=== PATIENT | female | born 1955 | race African-American/Black ===

== ENCOUNTER 2016-06-21 18:56 | Emergency (ER) | payer MEDICAID, OTHER ==
[~2016-06-21] VITALS: Ht 160 cm; Wt 108.0 kg
[2016-06-21] MEDS ORDERED: KETOROLAC 60MG/2ML VIAL IM ONE (22:30)
[2016-06-21 23:01] LABS: EOSINOPHILS % 2.1 % (0.0-5.0); HEMATOCRIT. 37.4 % (36.0-48.0); HEMOGLOBIN. 12.1 g/dL (12.0-16.0); LYMPHOCYTES % 30.9 % (20.0-50.0); MEAN CORPUSCULAR HEMOGLOBIN 22.6 pg (28.0-32.0); MEAN CORPUSCULAR HGB CONC 32.4 g/dL (31.0-37.0); MEAN CORPUSCULAR VOLUME 69.9 fL (81.0-99.0); MEAN PLATELET VOLUME 9.4 fl (7.4-10.4); MONOCYTES % 10.1 % (2.0-8.0); NEUTROPHILS % 55.9 % (40.0-76.0); PLATELET 220 x1000/uL (130-400); RED BLOOD CELL COUNT 5.36 mill/uL (4.2-5.4); RED CELL DISTRIBUTION WIDTH 17.6 % (11.6-14.6); WHITE BLOOD COUNT 9.8 x1000/uL (4.5-11.0)
[2016-06-21 23:02] LABS: ADD RBC MORPHOLOGY YES; DIFFERENTIAL COMMENT 1
[2016-06-21 23:03] LABS: CHLORIDE 106 mEq/L (98-107); INDEX HEMOLYSI 1 (1-3); INDEX ICTERIC 1 (1-4); INDEX LIPEMIC 1 (1-3)
[2016-06-21 23:11] LABS: ALANINE AMINOTRANSFERASE 19 IU/L (13-61); ALBUMIN 2.9 g/dL (3.4-5.0); ANION GAP 10; CALCIUM 8.5 mg/dL (8.5-10.1); CARBON DIOXIDE 28 mEq/L (21-32); UREA NITROGEN BLOOD 15 mg/dL (7-21); eGFR > 60 mL/min (>60)
[2016-06-21 23:15] LABS: HYPOCHROMASIA 1+; PLATELET ESTIMATE NORMAL
[2016-06-21 23:35] VITALS: BP 100/86
== END 2016-06-22 00:10 | disposition home or self-care (01) ==
LOC: ER 19:08
DX: M94.0 Chondrocostal junction syndrome [Tietze] (principal); J44.9 Chronic obstructive pulmonary disease, unspecified; F17.210 Nicotine dependence, cigarettes, uncomplicated; F32.9 Major depressive disorder, single episode, unspecified; I10 Essential (primary) hypertension; Z88.6 Allergy status to analgesic agent
CPT/HCPCS: 36415; 80053; 85025; 96372; 99284; J1885

== ENCOUNTER 2019-05-25 11:35 | Emergency (ER) | payer MEDICAID, OTHER ==
[~2019-05-25] VITALS: Ht 162.6 cm; Wt 90.0 kg
[2019-05-25 20:06] VITALS: BP 135/79
[2019-05-26] MEDS ORDERED: IBUPROFEN 600MG TABLET PO ONE (09:45)
== END 2019-05-26 10:31 | disposition home or self-care (01) ==
LOC: ER 11:49
DX: J06.9 Acute upper respiratory infection, unspecified (principal); Z59.0 Homelessness; E11.9 Type 2 diabetes mellitus without complications; I10 Essential (primary) hypertension; F20.9 Schizophrenia, unspecified; Z88.5 Allergy status to narcotic agent
CPT/HCPCS: 71045; 99283

== ENCOUNTER 2021-10-26 14:38 | Emergency (ER) | payer MEDICAID, OTHER ==
[~2021-10-26] VITALS: Ht 165.1 cm; Wt 73.0 kg
[2021-10-26 14:42] VITALS: BP 138/77
[2021-10-26] MEDS ORDERED: IBUPROFEN 600MG TABLET PO STA (17:06)
[2021-10-26 17:53] LABS: BASOPHILS % 0.8 % (0.0-2.0); EOSINOPHILS % 2.8 % (0.0-5.0); HEMATOCRIT. 38.2 % (36.0-48.0); LYMPHOCYTES % 44.3 % (20.0-50.0); MEAN CORPUSCULAR HEMOGLOBIN 22.3 pg (28.0-32.0); MEAN CORPUSCULAR VOLUME 70.6 fL (81.0-99.0); MEAN PLATELET VOLUME 9.3 fl (7.4-10.4); MONOCYTES % 10.1 % (2.0-8.0); PLATELET 234 x1000/uL (130-400)
[2021-10-26 17:57] LABS: CHLORIDE 111 mEq/L (98-107)
[2021-10-26 17:58] LABS: PROTHROMBIN TIME 10.7 sec (9.6-11.0)
== END 2021-10-26 20:12 | disposition left against medical advice (07) ==
LOC: ER 14:38
DX: R07.89 Other chest pain (principal); I10 Essential (primary) hypertension; E11.9 Type 2 diabetes mellitus without complications; Z20.822 Contact with and (suspected) exposure to COVID-19; Z88.5 Allergy status to narcotic agent; Z86.59 Personal history of other mental and behavioral disorders; Z53.29 Procedure and treatment not carried out because of patient's decision for other reasons
CPT/HCPCS: 36415; 71045; 80053; 83880; 84484; 85025; 85610; 87426; 93005; 93970; 99285; C9803

== ENCOUNTER 2022-01-25 09:49 | Emergency (ER) | payer MEDICAID ==
[~2022-01-25] VITALS: Ht 170.2 cm; Wt 77.0 kg
[2022-01-25 11:44] LABS: BASOPHILS % 0.5 % (0.0-2.0); EOSINOPHILS % 1.4 % (0.0-5.0); HEMATOCRIT. 35.4 % (36.0-48.0); HEMOGLOBIN. 11.2 g/dL (12.0-16.0); LYMPHOCYTES % 36.3 % (20.0-50.0); MEAN CORPUSCULAR HEMOGLOBIN 22.1 pg (28.0-32.0); MEAN PLATELET VOLUME 9.3 fl (7.4-10.4); MONOCYTES % 9.2 % (2.0-8.0); NEUTROPHILS % 52.6 % (40.0-76.0); PLATELET 230 x1000/uL (130-400); RED BLOOD CELL COUNT 5.06 mill/uL (4.2-5.4); RED CELL DISTRIBUTION WIDTH 16.7 % (11.6-14.6)
[2022-01-25 11:55] LABS: PROTHROMBIN TIME 10.8 sec (9.6-11.0)
[2022-01-25 12:12] LABS: CHLORIDE 107 mEq/L (98-107)
[2022-01-25 12:19] LABS: ETHANOL BLOOD < 10 mg/dL
[2022-01-25 12:29] LABS: CLARITY URINE CLEAR (CLEAR); COLOR URINE YELLOW (YELLOW); KETONES URINE NEGATIVE (NEGATIVE); LEUKOCYTE ESTERASE URINE 2+ (NEGATIVE); NITRITE URINE NEGATIVE (NEGATIVE); OCCULT BLOOD URINE NEGATIVE (NEGATIVE); PH URINE 6.5 (4.5-8.0); PROTEIN URINE NEGATIVE (NEGATIVE); SPECIFIC GRAVITY URINE 1.018 (1.005-1.030)
[2022-01-25 12:47] LABS: *AMPHETAMINES SCREEN URINE NEGATIVE (NEGATIVE); *BARBITURATES SCREEN URINE NEGATIVE (NEGATIVE); *BENZODIAZEPINES SCREEN URINE NEGATIVE (NEGATIVE); *COCAINE SCREEN URINE NEGATIVE (NEGATIVE); CANNABINOID URINE SCREEN PRESUMTIVE POSITIVE (NEGATIVE); METHADONE URINE SCREEN NEGATIVE (NEGATIVE); OPIATES URINE SCREEN NEGATIVE (NEGATIVE); PHENCYCLIDINE URINE SCREEN NEGATIVE (NEGATIVE)
[2022-01-25] MEDS ORDERED: CIPR-264 MT (13:34)
[2022-01-25] MEDS ORDERED: IOHEXOL-300 100 ML BOTTLE ONE (13:35)
[2022-01-25 14:37] VITALS: BP 172/94
[2022-01-25 14:37] LABS: PLATELET ESTIMATE NORMAL
== END 2022-01-25 15:11 | disposition home or self-care (01) ==
LOC: ER 09:49
DX: N39.0 Urinary tract infection, site not specified (principal); I10 Essential (primary) hypertension; E11.9 Type 2 diabetes mellitus without complications; Z88.5 Allergy status to narcotic agent; Z98.890 Other specified postprocedural states; Z86.59 Personal history of other mental and behavioral disorders
CPT/HCPCS: 36415; 71045; 74177; 80053; 80305; 80320; 81003; 83690; 85025; 85610; 93005; 99285; Q9967; G0480

== ENCOUNTER 2022-01-27 00:46 | Emergency (ER) | payer MEDICAID ==
[~2022-01-27] VITALS: Ht 154.9 cm; Wt 80.0 kg
[~2022-01-27 00:46] MED LIST: CIPR-264 MT
[2022-01-27 04:34] VITALS: BP 162/78
[2022-01-27 07:12] LABS: BASOPHILS % 0.4 % (0.0-2.0); EOSINOPHILS % 2.7 % (0.0-5.0); HEMATOCRIT. 37.4 % (36.0-48.0); HEMOGLOBIN. 11.8 g/dL (12.0-16.0); LYMPHOCYTES % 35.6 % (20.0-50.0); MEAN CORPUSCULAR HEMOGLOBIN 21.9 pg (28.0-32.0); MEAN CORPUSCULAR VOLUME 69.2 fL (81.0-99.0); MEAN PLATELET VOLUME 9.5 fl (7.4-10.4); MONOCYTES % 9.7 % (2.0-8.0); NEUTROPHILS % 51.6 % (40.0-76.0); PLATELET 278 x1000/uL (130-400); RED CELL DISTRIBUTION WIDTH 16.4 % (11.6-14.6)
[2022-01-27 07:17] LABS: CHLORIDE 108 mEq/L (98-107)
[2022-01-27 07:22] LABS: PROTHROMBIN TIME 10.7 sec (9.6-11.0)
[2022-01-27 07:35] LABS: PLATELET ESTIMATE NORMAL
== END 2022-01-27 08:49 | disposition left against medical advice (07) ==
LOC: ER 00:46
DX: R10.9 Unspecified abdominal pain (principal); M19.90 Unspecified osteoarthritis, unspecified site; E11.9 Type 2 diabetes mellitus without complications; I10 Essential (primary) hypertension; F20.9 Schizophrenia, unspecified; Z88.6 Allergy status to analgesic agent; Z98.890 Other specified postprocedural states
CPT/HCPCS: 36415; 74176; 80053; 84484; 85025; 99284

== ENCOUNTER 2022-07-18 21:23 | Emergency (ER) | payer MEDICAID, OTHER ==
[~2022-07-18] VITALS: Ht 160 cm; Wt 67.0 kg
[2022-07-18] MEDS ORDERED: ACETAMINOPHEN 325MG TABLET PO ONE (22:00)
[2022-07-18 23:51] LABS: BASOPHILS % 1.1 % (0.0-2.0); EOSINOPHILS % 2.4 % (0.0-5.0); HEMATOCRIT. 32.7 % (36.0-48.0); HEMOGLOBIN. 10.3 g/dL (12.0-16.0); LYMPHOCYTES % 41.1 % (20.0-50.0); MEAN CORPUSCULAR HEMOGLOBIN 21.9 pg (28.0-32.0); MEAN CORPUSCULAR VOLUME 69.2 fL (81.0-99.0); MEAN PLATELET VOLUME 8.7 fl (7.4-10.4); MONOCYTES % 9.3 % (2.0-8.0); NEUTROPHILS % 46.1 % (40.0-76.0); PLATELET 226 x1000/uL (130-400); RED BLOOD CELL COUNT 4.72 mill/uL (4.2-5.4); RED CELL DISTRIBUTION WIDTH 16.4 % (11.6-14.6)
[2022-07-19] LABS: CHLORIDE 111 mEq/L (98-107)
[2022-07-19] MEDS ORDERED: IBUP-2028 MT (02:25)
[2022-07-19 05:25] LABS: PLATELET ESTIMATE NORMAL
[2022-07-19 11:00] VITALS: BP 106/58
== END 2022-07-19 13:56 | disposition home or self-care (01) ==
LOC: ER 21:23
DX: M25.551 Pain in right hip (principal); R51.9 Headache, unspecified; I10 Essential (primary) hypertension; E11.9 Type 2 diabetes mellitus without complications; Z86.59 Personal history of other mental and behavioral disorders; Z98.890 Other specified postprocedural states; W01.0XXA Fall on same level from slipping, tripping and stumbling without subsequent striking against object, initial encounter; Y93.89 Activity, other specified; Y92.89 Other specified places as the place of occurrence of the external cause; Y99.8 Other external cause status
CPT/HCPCS: 36415; 70450; 72192; 73502; 80053; 85025; 85610; 99285; Z7610

== ENCOUNTER 2023-03-13 08:12 | Emergency (ER) | payer MEDICAID, OTHER ==
[~2023-03-13] VITALS: Ht 162.6 cm; Wt 70.0 kg
[~2023-03-13 08:12] MED LIST changes: +IBUP-2028 MT; +LIDO1ADH23 TP
[2023-03-13 08:13] VITALS: BP 132/80; PULSE 80; RESP 18; TEMP 98.7; O2SAT 99
== END 2023-03-13 09:31 | disposition home or self-care (01) ==
LOC: ER 08:12
DX: M19.90 Unspecified osteoarthritis, unspecified site (principal); J44.9 Chronic obstructive pulmonary disease, unspecified; E11.9 Type 2 diabetes mellitus without complications; K21.9 Gastro-esophageal reflux disease without esophagitis; I10 Essential (primary) hypertension; F20.9 Schizophrenia, unspecified; F12.90 Cannabis use, unspecified, uncomplicated; Z90.49 Acquired absence of other specified parts of digestive tract; Z98.890 Other specified postprocedural states; Z88.8 Allergy status to other drugs, medicaments and biological substances; Z88.5 Allergy status to narcotic agent
CPT/HCPCS: 99283

== ENCOUNTER 2023-08-05 07:19 | Emergency (ER) | payer MEDICAID, OTHER ==
[~2023-08-05] VITALS: Ht 152.4 cm; Wt 72.6 kg
[2023-08-05 07:51] VITALS: O2SAT 98
[2023-08-05 08:25] LABS: BASOPHILS % 0.4 % (0.0-2.0); CHLORIDE 108 mEq/L (98-107); DIFFERENTIAL COMMENT 0; HEMATOCRIT. 38.1 % (36.0-48.0); HEMOGLOBIN. 12.2 g/dL (12.0-16.0); LYMPHOCYTES % 10.6 % (20.0-50.0); MEAN CORPUSCULAR HEMOGLOBIN 22.5 pg (28.0-32.0); MEAN CORPUSCULAR HGB CONC 31.9 g/dL (31.0-37.0); MEAN CORPUSCULAR VOLUME 70.5 fL (81.0-99.0); MEAN PLATELET VOLUME 9.4 fl (7.4-10.4); MONOCYTES % 4.5 % (2.0-8.0); NEUTROPHILS % 81.5 % (40.0-76.0); PLATELET 258 x1000/uL (130-400); RED BLOOD CELL COUNT 5.41 mill/uL (4.2-5.4); RED CELL DISTRIBUTION WIDTH 16.6 % (11.6-14.6); SODIUM 141 mEq/L (136-145); WHITE BLOOD COUNT 5.3 x1000/uL (4.5-11.0)
[2023-08-05 08:26] LABS: CARBON DIOXIDE 27 mEq/L (21-32)
[2023-08-05 08:27] LABS: CALCIUM 9.5 mg/dL (8.7-10.4)
[2023-08-05 08:31] LABS: CREATININE 0.7 mg/dL (0.6-1.0); GLUCOSE 108 mg/dL (70-105)
[2023-08-05 08:32] LABS: TROPONIN I HIGH SENSITIVITY 13 ng/L (3.0-34); UREA NITROGEN BLOOD 20 mg/dL (9-23)
[2023-08-05 08:33] LABS: ALANINE AMINOTRANSFERASE 23 IU/L (10-49); ALBUMIN 4.8 g/dL (3.2-4.8); ASPARTATE AMINOTRANSFERASE 29 IU/L (<34)
[2023-08-05 08:34] LABS: BILIRUBIN DIRECT 0.5 mg/dL (<=3.0); BILIRUBIN TOTAL 1.9 mg/dL (0.1-1.0); PROTEIN TOTAL 8.1 g/dL (6.0-8.3)
[2023-08-05] MEDS ORDERED: NAPR-681 MT (10:25)
[2023-08-05 10:36] LABS: CLARITY URINE CLEAR (CLEAR); COLOR URINE YELLOW (YELLOW); GLUCOSE URINE NEGATIVE (NEGATIVE); KETONES URINE NEGATIVE (NEGATIVE); LEUKOCYTE ESTERASE URINE 2+ (NEGATIVE); NITRITE URINE NEGATIVE (NEGATIVE); OCCULT BLOOD URINE 1+ (NEGATIVE); PH URINE 5.5 (4.5-8.0); PROTEIN URINE NEGATIVE (NEGATIVE); SPECIFIC GRAVITY URINE 1.023 (1.005-1.030)
[2023-08-05 10:45] VITALS: BP 126/72; PULSE 89; RESP 17; TEMP 98.1
[2023-08-05 10:50] LABS: BACTERIA URINE TRACE; RBC URINE 0-2 /hpf (0-2); SQUAMOUS EPITHELIAL CELL URINE 1+ /lpf (RARE/1+); WBC URINE 0-2 /hpf (0-2)
== END 2023-08-05 10:50 | disposition home or self-care (01) ==
LOC: ER 07:19
DX: M19.90 Unspecified osteoarthritis, unspecified site (principal); J44.9 Chronic obstructive pulmonary disease, unspecified; K21.9 Gastro-esophageal reflux disease without esophagitis; I10 Essential (primary) hypertension; F20.9 Schizophrenia, unspecified; F12.10 Cannabis abuse, uncomplicated
CPT/HCPCS: 80076; 80048; 81003; 85025; 84484; 36415; 71045; 93005; 99285; Z7610 ×3

== ENCOUNTER 2023-08-05 14:39 | Emergency (ER) | payer OTHER ==
[~2023-08-05] VITALS: Ht 154.9 cm; Wt 65.8 kg
[~2023-08-05 14:39] MED LIST changes: +NAPR-681 MT
[2023-08-05 14:48] VITALS: BP 140/83; PULSE 98; RESP 16; TEMP 98.6; O2SAT 100
== END 2023-08-05 15:30 | disposition home or self-care (01) ==
LOC: ER 14:39
DX: R68.89 Other general symptoms and signs (principal); J44.9 Chronic obstructive pulmonary disease, unspecified; E11.9 Type 2 diabetes mellitus without complications; K21.9 Gastro-esophageal reflux disease without esophagitis; I10 Essential (primary) hypertension; F20.9 Schizophrenia, unspecified; F12.10 Cannabis abuse, uncomplicated; Z79.899 Other long term (current) drug therapy
CPT/HCPCS: 99281

== ENCOUNTER 2023-08-28 20:29 | Emergency (ER) | payer OTHER ==
[~2023-08-28] VITALS: Ht 165.1 cm; Wt 68.0 kg
[2023-08-28 20:36] VITALS: BP 142/77; PULSE 81; RESP 18; TEMP 98.3; O2SAT 99
[2023-08-28] MEDS ORDERED: ACETAMINOPHEN 325MG TABLET PO ONE (22:30)
[2023-08-28] MEDS: ACETAMINOPHEN 325MG TABLET PO NR (23:15)
== END 2023-08-28 23:16 | disposition home or self-care (01) ==
LOC: ER 20:29
DX: M19.011 Primary osteoarthritis, right shoulder (principal); M25.511 Pain in right shoulder; E11.9 Type 2 diabetes mellitus without complications; I10 Essential (primary) hypertension; F20.9 Schizophrenia, unspecified; H40.9 Unspecified glaucoma; F12.10 Cannabis abuse, uncomplicated
CPT/HCPCS: 73030; 99283

== ENCOUNTER 2023-09-04 23:19 | Emergency (ER) | payer OTHER ==
[~2023-09-04] VITALS: Ht 154.9 cm; Wt 73.0 kg
[2023-09-04 23:21] VITALS: TEMP 97.8; O2SAT 99
[2023-09-05] MEDS ORDERED: IBUP-2029 MT (00:01)
[2023-09-05 00:09] VITALS: BP 142/87; PULSE 83; RESP 19
[2023-09-05] MEDS: ACETAMINOPHEN 325MG TABLET PO ONE (00:11)
== END 2023-09-05 00:15 | disposition home or self-care (01) ==
LOC: ER 23:30
DX: M79.18 Myalgia, other site (principal); E11.9 Type 2 diabetes mellitus without complications; I10 Essential (primary) hypertension; F20.9 Schizophrenia, unspecified; F12.90 Cannabis use, unspecified, uncomplicated; Z98.890 Other specified postprocedural states; Z88.5 Allergy status to narcotic agent; Z88.8 Allergy status to other drugs, medicaments and biological substances
CPT/HCPCS: 99283

== ENCOUNTER 2023-09-12 19:16 | Emergency (ER) | payer OTHER ==
[~2023-09-12] VITALS: Ht 165.1 cm; Wt 73.0 kg
[~2023-09-12 19:16] MED LIST changes: +IBUP-2029 MT
[2023-09-12] MEDS: ACETAMINOPHEN 325MG TABLET PO ONE (22:36)
[2023-09-12] MEDS: PREDNISONE 20MG TABLET PO ONE (22:37)
[2023-09-12 23:25] LABS: BASOPHILS % 0.4 % (0.0-2.0); DIFFERENTIAL COMMENT 0; EOSINOPHILS % 4.6 % (0.0-5.0); HEMATOCRIT. 34.6 % (36.0-48.0); HEMOGLOBIN. 10.9 g/dL (12.0-16.0); LYMPHOCYTES % 35.3 % (20.0-50.0); MEAN CORPUSCULAR HEMOGLOBIN 22.4 pg (28.0-32.0); MEAN CORPUSCULAR HGB CONC 31.5 g/dL (31.0-37.0); MEAN CORPUSCULAR VOLUME 70.9 fL (81.0-99.0); MEAN PLATELET VOLUME 8.5 fl (7.4-10.4); MONOCYTES % 9.1 % (2.0-8.0); NEUTROPHILS % 50.6 % (40.0-76.0); PLATELET 240 x1000/uL (130-400); RED BLOOD CELL COUNT 4.88 mill/uL (4.2-5.4); RED CELL DISTRIBUTION WIDTH 16.5 % (11.6-14.6); WHITE BLOOD COUNT 5.7 x1000/uL (4.5-11.0)
[2023-09-12 23:31] LABS: CHLORIDE 107 mEq/L (98-107); POTASSIUM 3.9 mEq/L (3.5-5.1); SODIUM 140 mEq/L (136-145)
[2023-09-12 23:32] LABS: CARBON DIOXIDE 26 mEq/L (21-32)
[2023-09-12 23:37] LABS: CREATININE 0.7 mg/dL (0.6-1.0); GLUCOSE 91 mg/dL (70-105); UREA NITROGEN BLOOD 19 mg/dL (9-23)
[2023-09-12 23:39] LABS: ALANINE AMINOTRANSFERASE 38 IU/L (10-49); ALBUMIN 4.8 g/dL (3.2-4.8); ASPARTATE AMINOTRANSFERASE 35 IU/L (<34); BILIRUBIN TOTAL 0.7 mg/dL (0.1-1.0); PROTEIN TOTAL 7.4 g/dL (6.0-8.3); TROPONIN I HIGH SENSITIVITY 10 ng/L (3.0-34)
[2023-09-12] MEDS: ALBUTEROL (0.083%) 2.5MG/3ML NEB HHN ONE (23:52)
[2023-09-12 23:53] VITALS: PULSE 57; RESP 20; O2SAT 98
[2023-09-13] MEDS ORDERED: P50 MT (01:50)
[2023-09-13] MEDS ORDERED: ALBU18HF2 IH (01:50)
[2023-09-13 02:15] VITALS: BP 139/69; PULSE 66; RESP 20; TEMP 98.8
== END 2023-09-13 02:40 | disposition home or self-care (01) ==
LOC: ER 19:16
DX: R05.9 Cough, unspecified (principal); J44.1 Chronic obstructive pulmonary disease with (acute) exacerbation; F12.10 Cannabis abuse, uncomplicated; E11.9 Type 2 diabetes mellitus without complications; Z86.59 Personal history of other mental and behavioral disorders; Z88.5 Allergy status to narcotic agent; Z88.3 Allergy status to other anti-infective agents
CPT/HCPCS: 80053; 83880; 85025; 84484; 36415; 71045; 94640; 93005; 99285; J7512; Z7610 ×3

== ENCOUNTER 2023-12-09 15:11 | Emergency (ER) | payer OTHER ==
[~2023-12-09] VITALS: Ht 162.6 cm; Wt 77.0 kg
[~2023-12-09 15:11] MED LIST changes: +ALBU18HF2 IH; +P50 MT
[2023-12-09 15:16] VITALS: O2SAT 99
[2023-12-09 15:22] VITALS: BP 142/74; PULSE 89; RESP 18; TEMP 98.1; O2SAT 100
== END 2023-12-09 19:53 | disposition left against medical advice (07) ==
LOC: ER 15:32
DX: R68.89 Other general symptoms and signs (principal); Z53.21 Procedure and treatment not carried out due to patient leaving prior to being seen by health care provider

== ENCOUNTER 2024-02-22 08:41 | Emergency (ER) | payer OTHER ==
[~2024-02-22] VITALS: Ht 160 cm; Wt 59.0 kg
[2024-02-22 08:44] VITALS: BP 118/55; PULSE 65; RESP 18; O2SAT 98
[2024-02-22 10:40] VITALS: TEMP 97.8
[2024-02-22] MEDS: ACETAMINOPHEN 650MG/20.3ML UDC PO ONE (10:40)
[2024-02-22 12:57] LABS: CLARITY URINE CLEAR (CLEAR); COLOR URINE YELLOW (YELLOW); GLUCOSE URINE NEGATIVE (NEGATIVE); KETONES URINE TRACE (NEGATIVE); LEUKOCYTE ESTERASE URINE 1+ (NEGATIVE); NITRITE URINE NEGATIVE (NEGATIVE); OCCULT BLOOD URINE NEGATIVE (NEGATIVE); PH URINE 5.5 (4.5-8.0); PROTEIN URINE NEGATIVE (NEGATIVE); SPECIFIC GRAVITY URINE 1.021 (1.005-1.030); UROBILINOGEN URINE 0.2 E.U./dL (0.2-1.0)
[2024-02-22 13:54] LABS: MUCUS URINE TRACE /lpf (< = 2+); SQUAMOUS EPITHELIAL CELL URINE 1+ /lpf (RARE/1+)
[2024-02-22 13:55] LABS: BACTERIA URINE TRACE; WBC URINE 0-2 /hpf (0-2)
[2024-02-22 13:56] LABS: RBC URINE NONE SEEN /hpf (0-2)
== END 2024-02-22 12:35 | disposition left against medical advice (07) ==
LOC: ER 08:41
DX: R10.9 Unspecified abdominal pain (principal); J45.909 Unspecified asthma, uncomplicated; E11.9 Type 2 diabetes mellitus without complications; F20.9 Schizophrenia, unspecified; I10 Essential (primary) hypertension; Z88.5 Allergy status to narcotic agent
CPT/HCPCS: 71045; 74176; 81003; 93005; 99285